=== PATIENT | female | born 1970 | race Caucasian/White ===

== ENCOUNTER 2017-07-19 07:49 | Emergency (ER) | payer MEDICAID ==
[~2017-07-19] VITALS: Ht 170.2 cm; Wt 158.2 kg
[2017-07-19 07:51] VITALS: BP 177/122
[2017-07-19] MEDS ORDERED: IBUPROFEN 200 MG TABLET ONE (08:20)
[2017-07-19] MEDS ORDERED: IBUPROFEN 200 MG TABLET PO ONE (08:30)
== END 2017-07-19 09:07 | disposition home or self-care (01) ==
LOC: ED 08:50
DX: K08.89 Other specified disorders of teeth and supporting structures (principal); K02.9 Dental caries, unspecified
CPT/HCPCS: 99283